=== PATIENT | female | born 1995 | race Two or more races ===

== ENCOUNTER 2018-08-03 05:22 | Emergency (ER) | payer OTHER ==
[~2018-08-03] VITALS: Ht 162.6 cm; Wt 72.6 kg
[2018-08-03 05:25] VITALS: BP 135/69
--- NOTE | 2018-08-03 05:31 | ED.ADGEN ---
Past History Past Medical History: GERD (LETA CELESTIN MD) Adult General Chief Complaint Chief Complaint ".. I ve been vomiting... about 5 times last night... it was after [employer]... so it may be food.. but I did have a ulcer once when I was 15... and again in college.. but I am also on Ramadan fasting.. but my stomach hurt really bad...severe... . after the last episode of vomiting... it is now only a /10.. 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 Patient denies any tarry stools. Pain is localized in epigastric and right upper quadrant. Patient has had history of prior ulcers/gastritis. Gives history of possible H. pylori infection which is been treated twice with antibiotics and antiacids. First episode was age 15 and repeat episode in college. Patient denies any trauma. No recent travel. Has not been overseas for years. Patient is currently fasting for Ramadan. Patient has only had 1 stool in the past 48 hours. (LETA CELESTIN MD) Review of Systems Review of Systems Constitutional: Denies fever or chills [] Eyes: Denies change in visual acuity, redness, or eye pain [] HENT: Denies nasal congestion or sore throat [] Respiratory: Denies cough or shortness of breath [] Cardiovascular: No additional information not addressed in HPI [] GI: Complains of epigastric and right upper quadrant abdominal pain, nausea, vomiting,. Denies bloody stools or diarrhea [] : Denies dysuria or hematuria [] Musculoskeletal: Denies back pain or joint pain [] Integument: Denies rash or skin lesions [] Neurologic: Denies headache, focal weakness or sensory changes [] Endocrine: Denies polyuria or polydipsia [] All other systems were reviewed and found to be within normal limits, except as documented in this note. (LETA CELESTIN MD) Family History Family History No history of irritable bowel colitis or gallbladder disease (LETA CELESTIN MD) Current Medications Current Medications Current Medications Medications (Trade) Dose Ordered Sig/Reyes Start Time Stop Time Status Last Admin Dose Admin Famotidine (Pepcid Vial) 20 mg 1X ONCE 08/03/18 06:00 08/03/18 06:01 DC 08/03/18 05:54 20 MG Lactated Ringer's 1,000 ml @ 1,000 mls/hr Q1H 08/03/18 06:00 08/03/18 06:59 08/03/18 05:53 1,000 MLS/HR Magnesium Hydroxide (Milk Of Magnesia) 2,400 mg 1X ONCE 08/03/18 05:45 08/03/18 05:53 DC 08/03/18 05:52 2,400 MG Ondansetron HCl (Zofran) 8 mg 1X ONCE 08/03/18 06:00 08/03/18 06:01 DC 08/03/18 05:53 8 MG (TABBY RUCKER MD) Allergies Allergies Allergies Coded Allergies Type Severity Reaction Last Updated Verified No Known Drug Allergies 08/03/18 No (TABBY RUCKER MD) Physical Exam Physical Exam Constitutional: Well developed, well nourished, moderate acute distress, non- toxic appearance. [] HENT: Normocephalic, atraumatic, bilateral external ears normal, oropharynx moist, no oral exudates, nose normal. [] Eyes: PERRLA, EOMI, conjunctiva normal, no discharge. [] Neck: Normal range of motion, no tenderness, supple, no stridor. [] Cardiovascular:Heart rate regular rhythm, no murmur [] Lungs & Thorax: Bilateral breath sounds equal at apex on auscultation [] Abdomen: Bowel sounds normal, soft, right upper quadrant and epigastric tenderness, no masses, no pulsatile masses. [] Mild rebound to epigastric and right upper quadrant. Mild distention. Skin: Warm, dry, no erythema, no rash. [] Back: No tenderness, no CVA tenderness. [] Extremities: No tenderness, no cyanosis, no clubbing, ROM intact, no edema. [] No psoas sign Neurologic: Alert and oriented X 3, normal motor function, normal sensory function, no focal deficits noted. [] Psychologic: Affect anxious, judgement normal, mood normal. [] (LETA CELESTIN MD) Current Patient Data Vital Signs Vital Signs Date Time Temp Pulse Resp B/P (MAP) Pulse Ox O2 Delivery O2 Flow Rate FiO2 08/03/18 05:25 99.0 70 18 99 Room Air (TABBY RUCKER MD) Lab Results Laboratory Tests Test 08/03/18 05:25 08/03/18 05:41 08/03/18 05:45 Urine Collection Type Unknown Urine Color Yellow Urine Clarity Hazy Urine pH 6.0 Urine Specific [place] 1.020 Urine Protein Neg (NEG-TRACE) Urine Glucose (UA) Neg mg/dL (NEG) Urine Ketones (Stick) Neg mg/dL (NEG) Urine Blood Small (NEG) Urine Nitrite Neg (NEG) Urine Bilirubin Neg (NEG) Urine Urobilinogen Dipstick 0.2 mg/dL (0.2 mg/dL) Urine Leukocyte Esterase Small (NEG) Urine RBC Occ /HPF (0-2) Urine WBC 11-20 /HPF (0-4) Urine Squamous Epithelial Cells Few /LPF Urine Bacteria Mod /HPF (0-FEW) Urine Opiates Screen Neg (NEG) Urine Methadone Screen Neg (NEG) Urine Barbiturates Neg (NEG) Urine Phencyclidine Screen Neg (NEG) Urine Amphetamine/Methamphetamine Neg (NEG) Urine Benzodiazepines Screen Neg (NEG) Urine Cocaine Screen Neg (NEG) Urine Cannabinoids Screen Neg (NEG) Urine Ethyl Alcohol Neg (NEG) POC Urine HCG, Qualitative hcg negative (Negative) White Blood Count 7.8 x10^3/uL (4.0-11.0) Red Blood Count 4.74 x10^6/uL (3.50-5.40) Hemoglobin 13.7 g/dL (12.0-15.5) Hematocrit 40.4 % (36.0-47.0) Mean Corpuscular Volume 85 fL (79-100) Mean Corpuscular Hemoglobin 29 pg (25-35) Mean Corpuscular Hemoglobin Concent 34 g/dL (31-37) Red Cell Distribution Width 13.0 % (11.5-14.5) Platelet Count 213 x10^3/uL (140-400) Neutrophils (%) (Auto) 45 % (31-73) Lymphocytes (%) (Auto) 47 % (24-48) Monocytes (%) (Auto) 7 % (0-9) Eosinophils (%) (Auto) 1 % (0-3) Basophils (%) (Auto) 0 % (0-3) Neutrophils # (Auto) 3.5 x10^3uL (1.8-7.7) Lymphocytes # (Auto) 3.7 x10^3/uL (1.0-4.8) Monocytes # (Auto) 0.6 x10^3/uL (0.0-1.1) Eosinophils # (Auto) 0.1 x10^3/uL (0.0-0.7) Basophils # (Auto) 0.0 x10^3/uL (0.0-0.2) Prothrombin Time 10.2 SEC (9.4-11.4) Prothrombin Time INR 1.0 (0.9-1.1) PTT 24 SEC (23-33) Sodium Level 139 mmol/L (136-145) Potassium Level 3.9 mmol/L (3.5-5.1) Chloride Level 105 mmol/L (98-107) Carbon Dioxide Level 27 mmol/L (21-32) Anion Gap 7 (6-14) Blood Urea Nitrogen 13 mg/dL (7-20) Creatinine 1.0 mg/dL (0.6-1.0) Estimated GFR (Cockcroft-Gault) 68.7 Glucose Level 94 mg/dL (70-99) Calcium Level 9.2 mg/dL (8.5-10.1) Total Bilirubin 0.2 mg/dL (0.2-1.0) Direct Bilirubin < 0.1 mg/dL (0.0-0.2) Aspartate Amino Transferase (AST) 14 U/L (15-37) L Alanine Aminotransferase (ALT) 23 U/L (14-59) Alkaline Phosphatase 63 U/L (46-116) Creatine Kinase 85 U/L (26-192) Troponin I Quantitative < 0.017 ng/mL (0-0.055) Total Protein 7.4 g/dL (6.4-8.2) Albumin 3.9 g/dL (3.4-5.0) Amylase Level 97 U/L (25-115) Lipase 375 U/L (73-393) (TABBY RUCKER MD) Lab Results Microbiology 08/03/18 Urine Culture - Final, Complete 08/03/18 Urine Culture Result 1 (KAYLAN) - Final, Complete 08/03/18 Urine Culture Result 2 (KAYLAN) - Final, Complete (LETA CELESTIN MD) EKG EKG My interpretation EKG shows a sinus bradycardia at 55 bpm. There is some right axis. No findings acute STEMI with contralateral changes.[] (LETA CELESTIN MD) Radiology/Procedures Radiology/Procedures [] (LETA CELESTIN MD) Course & Med Decision Making Course & Med Decision Making Pertinent Labs and Imaging studies reviewed. (See chart for details) Dr. Rucker will make disposition of pt. Labs, x-rays pending at shift change. [] (LETA CELESTIN MD) Course & Med Decision Making Addendum by Dr. Tabby Rucker at 0703: I took over care of patient at [address] Celestin. On my evaluation, the patient states that her pain has resolved at this time. Patient displays no tenderness or guarding in the right upper quadrant on my exam. Lab work is unremarkable. Urine has questionable findings of urinary tract infection. Patient denies any urinary symptoms at this time. We will defer antibiotic treatment pending results of urine culture. Patient symptoms are consistent with gastritis. Noted increased stool on x-rays as well. Recommended use of MiraLAX [id number] as needed for constipation. We'll treat patient with Pepcid as outpatient and recommended follow-up in 5 days with primary doctor for reevaluation. Advised return to emergency department for any worsening symptoms. Patient voiced understanding and in agreement with treatment plan. (TABBY RUCKER MD) Final Impression Final Impression 1. Abdomen pain 2. Nausea vomiting[] (LETA CELESTIN MD) Dragon Disclaimer Dragon Disclaimer This electronic medical record was generated, in whole or in part, using a voice recognition dictation system. (LETA CELESTIN MD) Departure Departure: Impression: Primary Impression: Abdominal pain Qualified Codes: R10.10 - Upper abdominal pain, unspecified Additional Impression: Nausea and vomiting Qualified Codes: R11.2 - Nausea with vomiting, unspecified Disposition: 01 HOME, SELF-CARE Condition: IMPROVED Patient Instructions: Abdominal Pain (Nonspecific) Additional Instructions: Follow-up with your primary doctor in the next 5 days for reevaluation. Return to the emergency department for any worsening symptoms. Scripts Ondansetron (ONDANSETRON ODT) 4 Mg Tab.rapdis 1 TAB PO PRN Q6-8HRS PRN for NAUSEA/VOMITING, #16 TAB Prov: TABBY RUCKER MD 08/03/18 Famotidine (PEPCID) 20 Mg Tablet 1 TAB PO BID, #30 TAB 0 Refills Prov: TABBY RUCKER MD 08/03/18 LETA CELESTIN MD August 03, 2018 05:31 TABBY RUCKER MD August 03, 2018 07:06
[2018-08-03] MEDS ORDERED: MAGNESIUM HYDROXIDE 2,400 MG/30 ML ORAL.SUSP. PO ONE (05:45)
[2018-08-03 05:58] LABS: BASO % 0 % (0-3); EOS # 0.1 x10^3/uL (0.0-0.7); EOS % 1 % (0-3); HEMATOCRIT 40.4 % (36.0-47.0); HEMOGLOBIN 13.7 g/dL (12.0-15.5); LYMPH # 3.7 x10^3/uL (1.0-4.8); LYMPH % 47 % (24-48); MEAN CORPUSCULAR HEMOGLOBIN 29 pg (25-35); MEAN CORPUSCULAR HGB CONC 34 g/dL (31-37); MEAN CORPUSCULAR VOLUME 85 fL (79-100); MONO # 0.6 x10^3/uL (0.0-1.1); MONO % 7 % (0-9); NEUT # 3.5 x10^3uL (1.8-7.7); NEUT % 45 % (31-73); PLATELET COUNT 213 x10^3/uL (140-400); RED BLOOD COUNT 4.74 x10^6/uL (3.50-5.40); WHITE BLOOD COUNT 7.8 x10^3/uL (4.0-11.0)
[2018-08-03] MEDS ORDERED: IV RINGERS SOLUTION,LACTATED 1,000 ML IV SCH (06:00)
[2018-08-03] MEDS ORDERED: ONDANSETRON PF 4 MG/2 ML VIAL. IV ONE (06:00)
[2018-08-03] MEDS ORDERED: FAMOTIDINE 20 MG/2 ML VIAL IVP ONE (06:00)
[2018-08-03 06:03] LABS: BACTERIA,URINE MOD /HPF (0-FEW); BILIRUBIN,URINE NEG (NEG); CLARITY,URINE HAZY; COLOR,URINE YELLOW; GLUCOSE,URINE NEG (NEG); NITRITE,URINE NEG (NEG); RBC,URINE OCC /HPF (0-2); UROBILINOGEN,URINE 0.2 mg/dL (0.2 mg/dL)
[2018-08-03 06:04] LABS: SQUAMOUS EPITHELIAL CELL,UR FEW /LPF
[2018-08-03 06:05] LABS: BARBITURATES NEG (NEG); BENZODIAZEPINES NEG (NEG); CANNABINOIDS NEG (NEG); COCAINE NEG (NEG); METHADONE NEG (NEG); OPIATES NEG (NEG); PHENCYCLIDINE NEG (NEG)
[2018-08-03 06:06] LABS: AMPHETAMINE/METHAMPHETAMINE NEG (NEG)
[2018-08-03 06:12] LABS: ALBUMIN 3.9 g/dL (3.4-5.0); ALK PHOS 63 U/L (46-116); ALT (SGPT) 23 U/L (14-59); AMYLASE 97 U/L (25-115); ANION GAP 7 (6-14); AST (SGOT) 14 U/L (15-37); BLOOD UREA NITROGEN 13 mg/dL (7-20); CALCIUM 9.2 mg/dL (8.5-10.1); CARBON DIOXIDE 27 mmol/L (21-32); CHLORIDE 105 mmol/L (98-107); GFR 68.7; GLUCOSE 94 mg/dL (70-99); LIPASE 375 U/L (73-393); POTASSIUM 3.9 mmol/L (3.5-5.1); SODIUM 139 mmol/L (136-145); TOTAL BILIRUBIN 0.2 mg/dL (0.2-1.0); TOTAL PROTEIN 7.4 g/dL (6.4-8.2)
[2018-08-03 06:23] LABS: DIRECT BILIRUBIN < 0.1 mg/dL (0.0-0.2)
--- NOTE | 2018-08-03 06:28 | RAD ---
Acute abdominal series 3 views. HISTORY: Nausea and vomiting 3 views were taken for an acute abdominal series. Lungs are clear. Heart is normal in size. There is no pleural effusion. There is no free air on the upright view the abdomen. There are no abnormal air-fluid levels. There is increased stool in the right colon. There are no abnormal calcifications in the abdomen. Osseous structures are unremarkable. IMPRESSION: 1. No acute chest disease. 2. Increased stool right colon and transverse colon. 4. No bowel obstruction noted. Electronically signed by: Todd Hernandez MD (08/03/2018 6:25 AM) [id number]
--- NOTE | 2018-08-03 06:38 | EKG ---
[address] [address] Test Date: 2018-08-03 Test Time: 05:59:23 Pat Name: RAUL AMBROSE Department: Room: Gender: F [employer] Operator: : 1995 Requested By: LETA TOLENTINO Order Number: [id number] Reading MD: Measurements Intervals [place] Rate: 55 P: 50 MT: 154 QRS: 93 QRSD: 86 T: 43 QT: 442 QTc: 425 Interpretive Statements SINUS RHYTHM RIGHTWARD AXIS QRS(T) CONTOUR ABNORMALITY CONSIDER ANTEROSEPTAL MYOCARDIAL DAMAGE POSSIBLY ABNORMAL ECG RI6.01 No previous ECG available for comparison
[2018-08-03] MEDS ORDERED: FAMO-63 PO (07:02)
[2018-08-03] MEDS ORDERED: ONDA4TAB12 PO (07:06)
== END 2018-08-03 07:14 | disposition home or self-care (01) ==
LOC: ER 05:22
DX: R11.2 Nausea with vomiting, unspecified (principal); R10.13 Epigastric pain; R10.11 Right upper quadrant pain; K21.9 Gastro-esophageal reflux disease without esophagitis
CPT/HCPCS: 36415; 74022; 80048; 80076; 80307; 81001; 81025; 82150; 82550; 83690; 84484; 85025; 85610; 85730; 86705; 86709; 86803; 87086; 87340; 93005; 96361; 96374; 96375; 99285; J2405; J3490; J7120

== ENCOUNTER 2018-12-01 19:48 | Emergency (ER) | payer OTHER ==
[~2018-12-01] VITALS: Ht 162.6 cm; Wt 72.6 kg
[~2018-12-01 19:48] MED LIST: FAMO-63 PO; ONDA4TAB12 PO
--- NOTE | 2018-12-01 20:14 | ED.ADGEN ---
Past History Past Medical History: GERD Alcohol Use: None Drug Use: None Adult General Chief Complaint Chief Complaint ".. I got this abscess under my arm... 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 Pt. has had previous abscess at same location. No history immunosuppression. No specific ill contacts. No recent travel. Patient currently working at the disciplinary /long term. Patient up-to-date with vaccinations. Has not been overseas recently. Review of Systems Review of Systems Constitutional: Denies fever or chills [] Eyes: Denies change in visual acuity, redness, or eye pain [] HENT: Denies nasal congestion or sore throat [] Respiratory: Denies cough or shortness of breath [] Cardiovascular: No additional information not addressed in HPI [] GI: Denies abdominal pain, nausea, vomiting, bloody stools or diarrhea [] : Denies dysuria or hematuria [] Musculoskeletal: Denies back pain or joint pain [] Integument: Denies rash or skin lesions []complaints of right axillary cellulitis Neurologic: Denies headache, focal weakness or sensory changes [] Endocrine: Denies polyuria or polydipsia [] All other systems were reviewed and found to be within normal limits, except as documented in this note. Family History Family History Noncontributory Current Medications Current Medications Current Medications Medications (Trade) Dose Ordered Sig/Reyes Start Time Stop Time Status Last Admin Dose Admin Ceftriaxone Sodium (Rocephin Im) 1 gm 1X ONCE 12/01/18 20:15 12/01/18 20:16 DC 12/01/18 20:41 1 GM Ketorolac Tromethamine (Toradol Im) 60 mg 1X ONCE 12/01/18 20:45 12/01/18 20:50 DC 12/01/18 20:51 60 MG Trimethoprim/ Sulfamethoxazole (Bactrim Ds) 1 tab 1X ONCE 12/01/18 20:15 12/01/18 20:16 DC 12/01/18 20:41 1 TAB Allergies Allergies Allergies Coded Allergies Type Severity Reaction Last Updated Verified No Known Drug Allergies 12/01/18 No Physical Exam Physical Exam Constitutional: Well developed, well nourished, moderate acute distress, non- toxic appearance. [] HENT: Normocephalic, atraumatic, bilateral external ears normal, oropharynx moist, no oral exudates, nose normal. [] Eyes: PERRLA, EOMI, conjunctiva normal, no discharge. [] Neck: Normal range of motion, no tenderness, supple, no stridor. [] Cardiovascular:Heart rate regular rhythm, no murmur [] Lungs & Thorax: Bilateral breath sounds clear to auscultation [] Abdomen: Bowel sounds normal, soft, no tenderness, no masses, no pulsatile masses. [] Skin: Warm, dry, no erythema, no rash. []Right axillary abscess Back: No tenderness, no CVA tenderness. [] Extremities: No tenderness, no cyanosis, no clubbing, ROM intact, no edema. [] Neurologic: Alert and oriented X 3, normal motor function, normal sensory function, no focal deficits noted. [] Psychologic: Affect anxious, judgement normal, mood normal. [] Current Patient Data Vital Signs Vital Signs Date Time Temp Pulse Resp B/P (MAP) Pulse Ox O2 Delivery O2 Flow Rate FiO2 12/01/18 21:30 99.5 89 22 150/86 (107) 100 Room Air Lab Results Laboratory Tests Test 12/01/18 20:10 12/01/18 20:34 Urine Collection Type Void Urine Color Yellow Urine Clarity Hazy Urine pH 7.0 Urine Specific [place] 1.010 Urine Protein Neg (NEG-TRACE) Urine Glucose (UA) Neg mg/dL (NEG) Urine Ketones (Stick) Neg mg/dL (NEG) Urine Blood Mod (NEG) Urine Nitrite Neg (NEG) Urine Bilirubin Neg (NEG) Urine Urobilinogen Dipstick 0.2 mg/dL (0.2 mg/dL) Urine Leukocyte Esterase Trace (NEG) Urine RBC 3-5 /HPF (0-2) Urine WBC 1-4 /HPF (0-4) Urine Squamous Epithelial Cells Mod /LPF Urine Bacteria Few /HPF (0-FEW) POC Urine HCG, Qualitative hcg negative (Negative) EKG EKG [] Radiology/Procedures Radiology/Procedures [] Course & Med Decision Making Course & Med Decision Making Pertinent Labs and Imaging studies reviewed. (See chart for details) Procedure note- right axillary abscess cleaned with Betadine. Incised with 11 blade with approximately 6 mL of mucopurulent pus drained. Packing instilled. Patient tolerated procedure well. Patient take Bactrim DS twice a day. Patient follow-up primary care. Packing must be removed in 3 days. Follow-up primary care to see if re packing needs to be completed.[] Return if any concerns. Final Impression Final Impression 1. Axillary Abscess[] Dragon Disclaimer Dragon Disclaimer This electronic medical record was generated, in whole or in part, using a voice recognition dictation system. Dragon Disclaimer This chart was dictated in whole or in part using Voice Recognition software in a busy, high-work load, and often noisy Emergency Department environment. It may contain unintended and wholly unrecognized errors or omissions. LETA TOLENTINO MD Dec 01, 2018 20:14
[2018-12-01] MEDS ORDERED: cefTRIAXone IM 1 GM VIAL IM ONE (20:15)
[2018-12-01] MEDS ORDERED: SMZ/TMP 800/160MG TABLET. PO ONE (20:15)
[2018-12-01] MEDS ORDERED: SULF1TAB24 PO (20:17)
[2018-12-01] MEDS ORDERED: NEOM1PAC TP (20:18)
[2018-12-01] MEDS ORDERED: HYDR-1179 PO (20:18)
[2018-12-01] MEDS ORDERED: KETOROLAC 60 MG/2 ML VIAL. IM ONE ×2 (20:34→20:45)
[2018-12-01 21:30] VITALS: BP 150/86
[2018-12-01 21:31] LABS: CLARITY,URINE HAZY; COLOR,URINE YELLOW
[2018-12-01 21:32] LABS: BACTERIA,URINE FEW /HPF (0-FEW); BILIRUBIN,URINE NEG (NEG); GLUCOSE,URINE NEG (NEG); NITRITE,URINE NEG (NEG); SQUAMOUS EPITHELIAL CELL,UR MOD /LPF; UROBILINOGEN,URINE 0.2 mg/dL (0.2 mg/dL)
== END 2018-12-01 21:33 | disposition home or self-care (01) ==
LOC: ER 19:48
DX: L02.411 Cutaneous abscess of right axilla (principal); L03.111 Cellulitis of right axilla; K21.9 Gastro-esophageal reflux disease without esophagitis
CPT/HCPCS: 10060; 81001; 81025; 87086; 96372; 99284; J0696; J1885